=== PATIENT | female | born 1970 | race Caucasian/White ===

== ENCOUNTER 2018-01-21 18:55 | Emergency (ER) | payer BC ==
[2018-01-21] MEDS ORDERED: Ketorolac INJ* 30 MG/ML 1 ML VIAL IV PUSH ONE (19:31)
[2018-01-21] MEDS ORDERED: Dexamethasone IV* 4 MG/ML 1 ML (4 MG) IV SLOW PU ONE (19:32)
--- NOTE | 2018-01-21 19:59 | RAD ---
INDICATION: Right central low back pain. COMPARISON: There are no prior studies available for comparison. TECHNIQUE: 3 views of the lumbar spine were obtained including lateral, AP and a coned-down lateral view of the lumbar sacral junction. FINDINGS: There is a mild lumbar scoliosis convex toward the left side. No fracture is seen. There is mild degenerative disc disease at the dorsal lumbar junction and at the L3-L4 level. IMPRESSION: MILD DEGENERATIVE DISC DISEASE NOTED.
[2018-01-21 20:17] LABS: ABS Basophils 0.1 10^3/ul (0-0.2); ABS Eosinophils 0.3 10^3/ul (0-0.6); ABS Lymphocytes 1.3 10^3/ul (1.0-4.8); ABS Neutrophils 10.1 10^3/ul (1.5-7.7); ABS Nucleated RBC 0 10^3/ul; Eosinophil % 2.6 % (0-6); Hematocrit 31 % (35-47); Hemoglobin 10.4 g/dl (12.0-16.0); Lymphocyte % 9.9 % (25-47); Mean Corpuscular HGB Conc 34 g/dl (31-36); Mean Corpuscular Hemoglobin 31 pg (27-31); Mean Corpuscular Volume 90 fL (80-97); Mean Platelet Volume 8.1 um3 (7.4-10.4); Nucleated Red Blood Cells % 0; Platelet Count 200 10^3/ul (150-450); Red Cell Distribution Width 14 % (10.5-15); White Blood Count 12.9 10^3/ul (3.5-10.8)
--- NOTE | 2018-01-21 20:17 | ED ---
Back Pain - HPI Summary HPI Summary: The patient is a 47 y/o F presenting to [facility] accompanied by her c/o severe aching lower back pain in the middle area near the beginning of her pelvic bone with a sudden onset at 04:00 this morning. The pain abruptly woke up the pt from sleeping this morning, although she had felt alright last night. To attempt to relieve the pain, she did some yoga stretches to no relief. She then had been unable to ambulate easily without pain. The pain had also moved into her right inguinal region and upper thigh. The pain is aggravated by any movement, including bending, ambulating, and breathing. She took Tylenol and Advil for treatment of the pain to no relief. She additionally c/o nausea. She denies CP, SOB, tingling in lower extremities, urinary symptoms, and changes in BM. She notes that she had walked a lot last weekend, but has never experienced this pain before. She currently rates the pain 8/10 in severity. She has hx of renal failure, sarcoidosis, and hilarbilliary cirrhosis. She has not had sciatica or arthritis before. She is allergic to codeine and tramadol. - History of Current Complaint Chief Complaint: EDBackInjMich Stated Complaint: BACK PAIN Time Seen by Provider: 01/21/18 19:19 Hx Obtained From: Patient Onset/Duration: Sudden Onset, Lasting Hours - starting at 04:00 this morning, Still Present Onset/Duration: Started Hours Ago, Still Present - and worsening throughout the day Timing: Constant, Lasting Hours Back Pain Location: Is Discrete @ - middle of lower back at beginning of pelvic bone Severity Initially: Moderate Severity Currently: Moderate Pain Intensity: 8 Pain Scale Used: 0-10 Numeric Character: Aching Aggravating Symptom(s): Movement, Bending, Walking, Other - breathing Alleviating Symptom(s): Nothing Associated Signs And Symptoms: Positive: Negative - CP, SOB, urinary symptoms, change in BM, Pain with Weight Bearing, Other - pain in right inguinal region and upper thigh, nausea. Negative: Numbness - in lower extremities, Abdominal Pain Full Body (No Head): 1 - pain in middle of lower back near beginning of pelvic bone - Allergies/Home Medications Allergies/Adverse Reactions: Allergies Allergy/AdvReac Type Severity Reaction Status Date / Time codeine Allergy Hallucinati Verified 01/21/18 19:00 ons tramadol Allergy Altered Verified 01/21/18 19:00 Mental Status PMH/Surg Hx/FS Hx/Imm Hx Endocrine/Hematology History: Denies: Hx Diabetes Cardiovascular History: Denies: Hx Hypertension Respiratory History: Reports: Other Respiratory Problems/Disorders - sarcoidosis GI History: Reports: Hx Cirrhosis - hilarbilliary cirrhosis Musculoskeletal History: Denies: Hx Arthritis, Hx Back Problems Sensory History: Denies: Hx Deafness Opthamlomology History: Denies: Hx Legally Blind EENT History: Denies: Hx Deafness - Cancer History Hx Chemotherapy: No Hx Radiation Therapy: No Infectious Disease History: Yes Infectious Disease History: Denies: Traveled Outside the [place] in Last 30 Days - Family History Known Family History: Negative: Cardiac Disease, Diabetes - Social History Alcohol Use: Rare Substance Use Type: Reports: None Smoking Status (MU): Never Smoked Tobacco Review of Systems Negative: Chest Pain Negative: Shortness Of Breath Gastrointestinal: Negative - abnormal BM Positive: Nausea Positive: no symptoms reported Positive: Other - pain the middle of the lower back at beginning of pelvic bone , pain in right region and upper thigh, pain with weight bearing Negative: Numbness - in lower extremities All Other Systems Reviewed And Are Negative: Yes Physical Exam - Summary Physical Exam Summary: Appearance: Well-appearing, Well-nourished, lying in bed comfortably Skin: Warm, dry, no obvious rash Eyes: sclera anicteric, no conjunctival pallor ENT: mucous membranes moist, pharynx appears normal Neck: Supple, nontender Respiratory: Clear to auscultation, no signs of respiratory distress Cardiovascular: Normal S1, S2. No murmurs. Normal distal pulses in tibial and radial bilaterally. Abdomen: Soft, nontender, normal active bowel sounds present Musculoskeletal: Strength/ROM Intact, Focal pain over SI joint, normal deep tendon reflexes in the knees and ankles bilaterally, Babinski's absent Neurological: A&Ox3, awake and alert, mentation is normal, speech is fluent and appropriate Psychiatric: affect is normal, does not appear anxious or depressed Triage Information Reviewed: Yes Vital Signs On Initial Exam: Initial Vitals Temp Pulse Resp BP Pulse Ox 97.8 F 71 18 149/73 99 01/21/18 18:57 01/21/18 18:57 01/21/18 18:57 01/21/18 18:57 01/21/18 18:57 Vital Signs Reviewed: Yes Diagnostics - Vital Signs Vital Signs Temp Pulse Resp BP Pulse Ox 01/21/18 18:57 97.8 F 71 18 149/73 99 - Laboratory Result Diagrams: 01/21/18 20:06 01/21/18 20:06 Lab Statement: Any lab studies that have been ordered have been reviewed, and results considered in the medical decision making process. - Radiology Lumbar Spine XR Xray Interpretation: Positive (See Comments) - Mild degenerative disc disease as noted. ED physician has reviewed this report. Radiology Interpretation Completed By: Radiologist Lumbar Spine MRI Xray Interpretation: Positive (See Comments) - Mild multilevel lumbar spondylopathy without canal stenosis or nerve root compression. ED physician has reviewed this report. Radiology Interpretation Completed By: Radiologist Back Pain Course/Dx - Course Course Of Treatment: This is a 47-year-old woman with abrupt onset of quite severe pain in the lower back slightly to the right of the midline. She did not have any fever, but given the severity and acuity of pain as well as her relative immunosuppression with her liver and kidney disease, I was concerned about the possibility of spinal infection. Fortunately her MRI scan (done without gadolinium contrast due to the patient's fairly advanced renal insufficiency) does not show any evidence of that. Also of interest is her urinalysis which is suggestive of infection. Her pain is not an atypical location for her pyelonephritis however, and she does not have any urinary symptoms or other suggestion of kidney infection. Nevertheless, given the diagnostic uncertainty here, it would be reasonable to prescribe a course of antibiotics, at least pending culture results. - Diagnoses Provider Diagnoses: Back pain, Pyelonephritis - Provider Notifications Discussed Care Of Patient With: César Quinones Time Discussed With Above Provider: 20:45 Instructed by Provider To: Other - authorized lumbar MRI Discharge - Sign-Out/Discharge Documenting (check all that apply): Patient Departure - Pt will be discharged home. - Discharge Plan Condition: Good Disposition: HOME Prescriptions: Oxycodone TAB(NF) [Oxycodone HCl 10 MG] 10 mg PO Q6H PRN #12 tab MDD 4 tabs PRN Reason: Pain Sulfamethox/Trimethoprim SS* [Bactrim SS 400/80 TAB*] 1 tab PO BID #20 tab Patient Education Materials: Kidney Infection (ED), Low Back Strain (ED) Referrals: Ange Resendiz MD [Primary Care Provider] - - Billing Disposition and Condition Condition: GOOD Disposition: Home Attestations Scribe Attestation: This is eduardoibe Teresa Shetty documenting for attending Dr. Donald Juan MD. User Type: Provider with Scribe Provider Attestation: The documentation recorded by the scribe accurately reflects the service I personally performed and the decisions made by me.
[2018-01-21 20:39] LABS: EGFR Non-African American 8.6 (>60)
[2018-01-21] MEDS ORDERED: Diazepam TAB(*) 5 MG PO ONE (20:56)
[2018-01-21] MEDS ORDERED: Morphine VIAL* 4 MG/ML VIAL (1 ml vial) IV ONE (21:21)
[2018-01-21] MEDS ORDERED: Morphine INJ* 2 MG/ML 1 ML SYRINGE (TWO MG - NEW SYRINGE VERSION) ONE (21:39)
[2018-01-21] MEDS ORDERED: Lidocaine PATCH 5%* 1 PATCH TRANSDERM ONE (22:00)
[2018-01-21 23:06] LABS: Urine Appearance Clear; Urine Blood 1+ (Negative); Urine Color Straw; Urine Ketones Negative (Negative); Urine Protein 3+(>=500 mg/dL) (Negative); Urine Red Blood Cell Trace(0-2/hpf) (Absent); Urine Urobilinogen Negative (Negative); Urine White Blood Cell 3+(>20/hpf) (Absent)
[2018-01-22] MEDS ORDERED: Nitrofurantoin Macrocrystals* 100 MG CAP PO ONE (02:30)
[2018-01-22] MEDS ORDERED: Sulfamethox/Trimethoprim SS 400/80* TAB PO ONE (02:41)
[2018-01-22] MEDS ORDERED: Sulfamethox/Trimethoprim DS 800/160* TAB ONE (02:52)
[2018-01-22 03:21] VITALS: BP 136/89
--- NOTE | 2018-01-22 07:21 | RAD ---
INDICATION: Low back pain assess for spinal infection. COMPARISON: Comparison is made with a prior x-ray study of the lumbar spine from January 21, 2018. TECHNIQUE: Axial and sagittal T1 and T2 and coronal T2-weighted images of the lumbar spine were obtained. FINDINGS: The vertebra are in normal alignment and normal in signal intensity without focal abnormality. Specifically no bone marrow edema or erosive endplate changes are seen. The intervertebral discs are are intermediate to low in signal intensity. There is no evidence for discitis or osteomyelitis. At the L1-L2 level there is no evidence for disc bulge or herniation. No spinal canal or neural foraminal narrowing is seen. At the L2-L3 level there is no evidence for disc bulge or herniation. No spinal canal or neural foraminal narrowing is seen. There are mild hypertrophic changes within the facet joints. At the L3-L4 level there is no evidence for disc bulge or herniation. There are mild hypertrophic changes within the facet joints. No spinal canal or neural foraminal narrowing is seen. At the L4-L5 level there is a minimal broad-based disc bulge and mild to moderate hypertrophic changes within the facet joints. No spinal canal or neural foraminal narrowing is seen. At the L5-S1 level there is no evidence for disc bulge or herniation. There are moderate hypertrophic changes within the facet joints. No significant spinal canal and neural foraminal narrowing is seen. IMPRESSION: 1. NO EVIDENCE FOR DISCITIS OR OSTEOMYELITIS. 2. MILD LUMBAR SPONDYLOSIS.
[2018-01-22] MEDS ORDERED: Lidocaine Patch REMOVE* 1 NOTE MISC PATCH OFF ONE (10:00)
== END 2018-01-22 03:20 | disposition home or self-care (01) ==
LOC: ED 18:55
DX: N10 Acute pyelonephritis (principal); M54.5 Low back pain; M47.816 Spondylosis without myelopathy or radiculopathy, lumbar region; M51.36 Other intervertebral disc degeneration, lumbar region; R11.0 Nausea; Z88.5 Allergy status to narcotic agent
CPT/HCPCS: 36415; 72100; 72148; 80053; 81003; 81015; 85025; 85652; 86140; 87086; 96374; 96375; 99283; A9270-GY; J1100; J1885; J2270

== ENCOUNTER 2018-01-23 09:39 | Emergency (ER) | payer BC ==
[2018-01-23] MEDS ORDERED: NS 0.9% 1000 ML*IV.FLUID IV ONE (09:56)
[2018-01-23] MEDS ORDERED: Piperacillin/Tazobac ADVAN(*) 3.375 GM in NS 0.9% 100 ML* 100 ML IVPB ONE ×2 (09:56→15:30)
[2018-01-23 10:29] LABS: ABS Basophils 0.1 10^3/ul (0-0.2); ABS Eosinophils 0 10^3/ul (0-0.6); ABS Lymphocytes 0.4 10^3/ul (1.0-4.8); ABS Monocytes 1.5 10^3/ul (0-0.8); ABS Neutrophils 15.2 10^3/ul (1.5-7.7); ABS Nucleated RBC 0 10^3/ul; Eosinophil % 0 % (0-6); Hematocrit 31 % (35-47); Hemoglobin 10.6 g/dl (12.0-16.0); Lymphocyte % 2.5 % (25-47); Mean Corpuscular HGB Conc 34 g/dl (31-36); Mean Corpuscular Hemoglobin 31 pg (27-31); Mean Corpuscular Volume 92 fL (80-97); Mean Platelet Volume 7.7 um3 (7.4-10.4); Nucleated Red Blood Cells % 0; Platelet Count 155 10^3/ul (150-450); Red Blood Count 3.41 10^6/ul (4.00-5.40); Red Cell Distribution Width 14 % (10.5-15); White Blood Count 17.1 10^3/ul (3.5-10.8)
[2018-01-23 10:45] LABS: EGFR Non-African American 7.8 (>60)
--- NOTE | 2018-01-23 10:50 | RAD ---
INDICATION: Sepsis and back pain. COMPARISON: Comparison is made with a prior chest x-ray study from January 30, 2012. TECHNIQUE: A portable view of the chest was obtained. FINDINGS: The heart is within normal limits in size. The lungs are underinflated. There are small bibasilar infiltrates. No pleural effusion is seen. IMPRESSION: LOW LUNG VOLUMES, SMALL BIBASILAR INFILTRATES.
[2018-01-23 11:45] LABS: INR 1.1 (0.77-1.02)
[2018-01-23] MEDS ORDERED: Acetaminophen TAB* 325 MG PO ONE (12:00)
[2018-01-23 13:50] LABS: Urine Appearance Cloudy; Urine Blood 2+ (Negative); Urine Color Yellow; Urine Ketones Negative (Negative); Urine Protein 2+(100 mg/dL) (Negative); Urine Red Blood Cell Trace(0-2/hpf) (Absent); Urine Specific Gravity 1.009 (1.010-1.030); Urine Urobilinogen Negative (Negative); Urine White Blood Cell 2+(11-20/hpf) (Absent)
--- NOTE | 2018-01-23 14:06 | ED ---
GI/ HPI - HPI Summary HPI Summary: This is scrcedrick Paige documenting for attending Milli Luna M.D. Patient is a 47 y/o F BIBA w/ c/o back pain, right flank pain and fever. EMS states patient has Hx of sarcoidosis, liver failure, kidney failure. Patient is not on dialysis and has no fistula. She is an established pt of Dr. Aj. On triage, it is noted that patient had fever and back pain two days ago. Patient was treated for possible UTI and was started on Bactrim and oxycodone two days ago,with no relief. In the ED on 01/21/18, pt had MRI spine that showed only mild lumbar spondylosis, no discitis or osteomyelitis. Pt had no fever during that ED visit. Urine culture from 01/21/18 showed no growth. In the room, EMS reports fever was 104.8 F at home, and patient had poor fluid intake. Patient was at home with and family, who called EMS. Family told EMS patient could not get out of bed. EMS found patient writhing and crying due to pain, was given fentanyl 100 micrograms and 4 mg of Zofran at 0922. On triage, pain is rated 1/10 and nothing is noted to aggravate/alleviate Sx. Initial vitals were 101 F, pulse 89, BP 140/64, O2 sat was 91 and pt was placed on 2 L NC with improvement in her O2 sat. Home medications reported are as follows: Furosemide TAB* [Lasix TAB*] 80 mg PO BID 01/23/18 [History Confirmed 01/23/18] Labetalol TAB* [Trandate TAB*] 300 mg PO BID 01/23/18 [History Confirmed ] Simvastatin (NF) [Zocor (NF)] 40 mg PO BEDTIME 01/23/18 [History Confirmed 01/23] Sodium Citrate/Citric Acid* [Bicitra*] 10 ml PO TID 01/23/18 [History Confirmed 01/23/18] Ursodiol 500 mg PO QPM 01/23/18 [History Confirmed 01/23/18] Ursodiol 750 mg PO QAM 01/23/18 [History Confirmed 01/23/18] Bactrim SS bid since 01/21/18 Reported allergies are as follows: Allergy/AdvReac Type Severity Reaction Status Date / Time codeine Allergy Hallucinati Verified 01/23/18 09:59 ons tramadol Allergy Altered Verified 01/23/18 09:59 Mental Status I, Dr. Luna, personally performed the services described in this documentation as scribed in my presence and it is both accurate and complete. - History of Current Complaint Chief Complaint: EDFever Time Seen by Provider: 01/23/18 09:50 Stated Complaint: BACK PAIN Hx Obtained From: Patient, EMS, Medical Records Onset/Duration: Started Hours Ago - this morning family called EMS, Started Days Ago - seen for back pain two days ago Timing: Lasting Days - patient was seen for back pain 2 days ago Severity: Severe Current Severity: Mild - on triage, pain is rated 1/10, after fentanyl administered by EMS Pain Intensity: 1 Location of Pain: Flank - right, Other - right low back Pain Characteristics: Sharp Associated Signs and Symptoms: Positive: Back Pain, Fever, Other: - right flank pain, poor po intake Aggravating Factor(s): Nothing Alleviating Factor(s): Nothing - Allergy/Home Medications Allergies/Adverse Reactions: Allergies Allergy/AdvReac Type Severity Reaction Status Date / Time codeine Allergy Hallucinati Verified 01/23/18 09:59 ons tramadol Allergy Altered Verified 01/23/18 09:59 Mental Status Home Medications: Home Medications Furosemide TAB* [Lasix TAB*] 80 mg PO BID 01/23/18 [History Confirmed 01/23/18] Labetalol TAB* [Trandate TAB*] 300 mg PO BID 01/23/18 [History Confirmed ] Simvastatin (NF) [Zocor (NF)] 40 mg PO BEDTIME 01/23/18 [History Confirmed 01/23] Sodium Citrate/Citric Acid* [Bicitra*] 10 ml PO TID 01/23/18 [History Confirmed 01/23/18] Ursodiol 500 mg PO QPM 01/23/18 [History Confirmed 01/23/18] Ursodiol 750 mg PO QAM 01/23/18 [History Confirmed 01/23/18] PMH/Surg Hx/FS Hx/Imm Hx Previously Healthy: No Endocrine/Hematology History: Denies: Hx Diabetes Cardiovascular History: Denies: Hx Hypertension, Hx Pacemaker/ICD Respiratory History: Reports: Other Respiratory Problems/Disorders - sarcoidosis GI History: Reports: Hx Cirrhosis - primary biliary cirrhosis History: Reports: Hx Chronic Renal Failure - stage IV, Hx Renal Disease - nephrotic syndrome, glomerulonephritis Musculoskeletal History: Denies: Hx Arthritis, Hx Back Problems Sensory History: Denies: Hx Legally Blind, Hx Deafness, Hx Hearing Aid Opthamlomology History: Denies: Hx Legally Blind Psychiatric History: Denies: Hx Panic Disorder - Cancer History Hx Chemotherapy: No Hx Radiation Therapy: No - Surgical History Surgery Procedure, Year, and Place: tubal ligation, hysterectomy 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 Infectious Disease History: Denies: Traveled Outside the [place] in Last 30 Days - Family History Known Family History: Negative: Cardiac Disease, Diabetes - Social History Lives: With Family Alcohol Use: None Substance Use Type: Reports: None Smoking Status (MU): Former Smoker Review of Systems Positive: Fever, Other - inability to keep up with fluids Cardiovascular: Negative Respiratory: Negative Gastrointestinal: Negative Positive: flank pain - right sided Positive: Other - back pain, right Skin: Negative Neurological: Negative Psychological: Normal All Other Systems Reviewed And Are Negative: Yes Physical Exam - Summary Physical Exam Summary: Appearance: ill appearing, moderate pain distress, obese, febrile Skin: Warm, color reflects adequate perfusion, dry Head: Normal Head/Face inspection, atraumatic Eyes: Conjunctiva clear ENT: dry oral mucosa Neck: Supple, no nodes, no JVD Respiratory: shallow respirations, decreased breath sounds throughout, no respiratory distress Cardio: RRR, No murmur, pulses normal, brisk capillary refill Abdomen: Soft, nontender Bowel sounds: Present Musculoskeletal: Strength Intact/ROM intact, no calf tenderness, no edema. Psychological: c/o pain, cooperative Neuro: Alert, facial symmetry, moves all extremities well, sensation intact to light touch, no focal deficit. Triage Information Reviewed: Yes Vital Signs On Initial Exam: Initial Vitals Temp Pulse Resp BP Pulse Ox 101 F 89 23 140/64 91 01/23/18 09:52 01/23/18 09:52 01/23/18 09:52 01/23/18 09:52 01/23/18 09:52 Vital Signs Reviewed: Yes Diagnostics - Vital Signs Vital Signs Temp Pulse Resp BP Pulse Ox 01/23/18 13:44 90 22 145/68 97 01/23/18 13:14 94 28 164/70 95 01/23/18 13:00 87 23 93 01/23/18 12:44 89 20 152/69 01/23/18 12:14 95 23 153/68 98 01/23/18 12:00 87 23 97 01/23/18 11:56 101.7 F 01/23/18 11:44 87 24 148/71 98 01/23/18 11:21 88 23 151/68 95 01/23/18 11:14 87 24 147/68 97 01/23/18 11:00 89 23 99 01/23/18 10:44 89 21 148/69 98 01/23/18 10:14 89 24 142/75 98 01/23/18 10:02 97 01/23/18 10:00 88 24 95 01/23/18 09:53 88 26 140/64 83 01/23/18 09:52 101 F 89 23 140/64 91 - Laboratory Lab Results: Lab Results 01/23/18 01/23/18 01/23/18 Range/Units 10:15 10:15 10:15 WBC 17.1 H (3.5-10.8) 10^3/ul RBC 3.41 L (4.00-5.40) 10^6/ul Hgb 10.6 L (12.0-16.0) g/dl Hct 31 L (35-47) % MCV 92 (80-97) fL MCH 31 (27-31) pg MCHC 34 (31-36) g/dl RDW 14 (10.5-15) % Plt Count 155 (150-450) 10^3/ul MPV 7.7 (7.4-10.4) um3 Neut % (Auto) 88.5 H (38-83) % Lymph % (Auto) 2.5 L (25-47) % Clinton % (Auto) 8.7 H (0-7) % Eos % (Auto) 0 (0-6) % Baso % (Auto) 0.3 (0-2) % Absolute Neuts (auto) 15.2 H (1.5-7.7) 10^3/ul Absolute Lymphs (auto) 0.4 L (1.0-4.8) 10^3/ul Absolute Monos (auto) 1.5 H (0-0.8) 10^3/ul Absolute Eos (auto) 0 (0-0.6) 10^3/ul Absolute Basos (auto) 0.1 (0-0.2) 10^3/ul Absolute Nucleated RBC 0 10^3/ul Nucleated RBC % 0 ESR 102 H (0-14) mm/Hr INR (Anticoag Therapy) 1.10 H (0.77-1.02) APTT 32.3 (26.0-36.3) seconds Fibrinogen 782.2 H (110.8-404.3) mg/dL ABG pH (7.35-7.45) ABG pCO2 (35-45) mmHg ABG pO2 (80-100) mmHg ABG HCO3 (19-31) mmol/L ABG O2 Saturation (95-98) % ABG Base Excess (-2.0-2.0) Sodium 130 L (135-145) mmol/L Potassium 4.9 (3.5-5.0) mmol/L Chloride 102 (101-111) mmol/L Carbon Dioxide 16 L (22-32) mmol/L Anion Gap 12 H (2-11) mmol/L BUN 89 H (6-24) mg/dL Creatinine 5.78 H (0.51-0.95) mg/dL Est GFR ( Amer) 9.4 (>60) Est GFR (Non-Af Amer) 7.8 (>60) BUN/Creatinine Ratio 15.4 (8-20) Glucose 136 H (70-100) mg/dL Lactic Acid (0.5-2.0) mmol/L Calcium 9.0 (8.6-10.3) mg/dL Total Bilirubin 0.50 (0.2-1.0) mg/dL AST 16 (13-39) U/L ALT 15 (7-52) U/L Alkaline Phosphatase 168 H (34-104) U/L Total Creatine Kinase 129 (10-223) U/L Troponin I 0.02 (<0.04) ng/mL C-Reactive Protein 154.19 H (<8.01) mg/L B-Natriuretic Peptide ( - 100) pg/mL Total Protein 7.2 (6.4-8.9) g/dL Albumin 3.8 (3.2-5.2) g/dL Globulin 3.4 (2-4) g/dL Albumin/Globulin Ratio 1.1 (1-3) Procalcitonin (<0.6) ng/mL Urine Color Urine Appearance Urine pH (5-9) Ur Specific [place] (1.010-1.030) Urine Protein (Negative) Urine Ketones (Negative) Urine Blood (Negative) Urine Nitrate (Negative) Urine Bilirubin (Negative) Urine Urobilinogen (Negative) Ur Leukocyte Esterase (Negative) Urine WBC (Auto) (Absent) Urine RBC (Auto) (Absent) Ur Squamous Epith Cells (Absent) Urine Bacteria (Absent) Urine Glucose (Negative) 01/23/18 01/23/18 01/23/18 Range/Units 10:15 10:15 10:15 WBC (3.5-10.8) 10^3/ul RBC (4.00-5.40) 10^6/ul Hgb (12.0-16.0) g/dl Hct (35-47) % MCV (80-97) fL MCH (27-31) pg MCHC (31-36) g/dl RDW (10.5-15) % Plt Count (150-450) 10^3/ul MPV (7.4-10.4) um3 Neut % (Auto) (38-83) % Lymph % (Auto) (25-47) % Clinton % (Auto) (0-7) % Eos % (Auto) (0-6) % Baso % (Auto) (0-2) % Absolute Neuts (auto) (1.5-7.7) 10^3/ul Absolute Lymphs (auto) (1.0-4.8) 10^3/ul Absolute Monos (auto) (0-0.8) 10^3/ul Absolute Eos (auto) (0-0.6) 10^3/ul Absolute Basos (auto) (0-0.2) 10^3/ul Absolute Nucleated RBC 10^3/ul Nucleated RBC % ESR (0-14) mm/Hr INR (Anticoag Therapy) (0.77-1.02) APTT (26.0-36.3) seconds Fibrinogen (110.8-404.3) mg/dL ABG pH (7.35-7.45) ABG pCO2 (35-45) mmHg ABG pO2 (80-100) mmHg ABG HCO3 (19-31) mmol/L ABG O2 Saturation (95-98) % ABG Base Excess (-2.0-2.0) Sodium (135-145) mmol/L Potassium (3.5-5.0) mmol/L Chloride (101-111) mmol/L Carbon Dioxide (22-32) mmol/L Anion Gap (2-11) mmol/L BUN (6-24) mg/dL Creatinine (0.51-0.95) mg/dL Est GFR ( Amer) (>60) Est GFR (Non-Af Amer) (>60) BUN/Creatinine Ratio (8-20) Glucose (70-100) mg/dL Lactic Acid 0.6 (0.5-2.0) mmol/L Calcium (8.6-10.3) mg/dL Total Bilirubin (0.2-1.0) mg/dL AST (13-39) U/L ALT (7-52) U/L Alkaline Phosphatase (34-104) U/L Total Creatine Kinase (10-223) U/L Troponin I (<0.04) ng/mL C-Reactive Protein (<8.01) mg/L B-Natriuretic Peptide 500 H ( - 100) pg/mL Total Protein (6.4-8.9) g/dL Albumin (3.2-5.2) g/dL Globulin (2-4) g/dL Albumin/Globulin Ratio (1-3) Procalcitonin 2.1 H (<0.6) ng/mL Urine Color Urine Appearance Urine pH (5-9) Ur Specific [place] (1.010-1.030) Urine Protein (Negative) Urine Ketones (Negative) Urine Blood (Negative) Urine Nitrate (Negative) Urine Bilirubin (Negative) Urine Urobilinogen (Negative) Ur Leukocyte Esterase (Negative) Urine WBC (Auto) (Absent) Urine RBC (Auto) (Absent) Ur Squamous Epith Cells (Absent) Urine Bacteria (Absent) Urine Glucose (Negative) 01/23/18 01/23/18 Range/Units 11:10 13:20 WBC (3.5-10.8) 10^3/ul RBC (4.00-5.40) 10^6/ul Hgb (12.0-16.0) g/dl Hct (35-47) % MCV (80-97) fL MCH (27-31) pg MCHC (31-36) g/dl RDW (10.5-15) % Plt Count (150-450) 10^3/ul MPV (7.4-10.4) um3 Neut % (Auto) (38-83) % Lymph % (Auto) (25-47) % Clinton % (Auto) (0-7) % Eos % (Auto) (0-6) % Baso % (Auto) (0-2) % Absolute Neuts (auto) (1.5-7.7) 10^3/ul Absolute Lymphs (auto) (1.0-4.8) 10^3/ul Absolute Monos (auto) (0-0.8) 10^3/ul Absolute Eos (auto) (0-0.6) 10^3/ul Absolute Basos (auto) (0-0.2) 10^3/ul Absolute Nucleated RBC 10^3/ul Nucleated RBC % ESR (0-14) mm/Hr INR (Anticoag Therapy) (0.77-1.02) APTT (26.0-36.3) seconds Fibrinogen (110.8-404.3) mg/dL ABG pH 7.23 L (7.35-7.45) ABG pCO2 31 L (35-45) mmHg ABG pO2 82 (80-100) mmHg ABG HCO3 14.5 L (19-31) mmol/L ABG O2 Saturation 98.7 H (95-98) % ABG Base Excess -13.4 L (-2.0-2.0) Sodium (135-145) mmol/L Potassium (3.5-5.0) mmol/L Chloride (101-111) mmol/L Carbon Dioxide (22-32) mmol/L Anion Gap (2-11) mmol/L BUN (6-24) mg/dL Creatinine (0.51-0.95) mg/dL Est GFR ( Amer) (>60) Est GFR (Non-Af Amer) (>60) BUN/Creatinine Ratio (8-20) Glucose (70-100) mg/dL Lactic Acid (0.5-2.0) mmol/L Calcium (8.6-10.3) mg/dL Total Bilirubin (0.2-1.0) mg/dL AST (13-39) U/L ALT (7-52) U/L Alkaline Phosphatase (34-104) U/L Total Creatine Kinase (10-223) U/L Troponin I (<0.04) ng/mL C-Reactive Protein (<8.01) mg/L B-Natriuretic Peptide ( - 100) pg/mL Total Protein (6.4-8.9) g/dL Albumin (3.2-5.2) g/dL Globulin (2-4) g/dL Albumin/Globulin Ratio (1-3) Procalcitonin (<0.6) ng/mL Urine Color Yellow Urine Appearance Cloudy Urine pH 5.0 (5-9) Ur Specific [place] 1.009 L (1.010-1.030) Urine Protein 2+(100 mg/dl) A (Negative) Urine Ketones Negative (Negative) Urine Blood 2+ A (Negative) Urine Nitrate Negative (Negative) Urine Bilirubin Negative (Negative) Urine Urobilinogen Negative (Negative) Ur Leukocyte Esterase Trace A (Negative) Urine WBC (Auto) 2+(11-20/hpf) A (Absent) Urine RBC (Auto) Trace(0-2/hpf) (Absent) Ur Squamous Epith Cells Present A (Absent) Urine Bacteria Absent (Absent) Urine Glucose 1+(50 mg/dl) A (Negative) Result Diagrams: 01/23/18 10:15 01/23/18 10:15 Lab Statement: Any lab studies that have been ordered have been reviewed, and results considered in the medical decision making process. - Radiology CXR Xray Interpretation: Positive (See Comments) Radiology Interpretation Completed By: Radiologist - Low lung volumes, small bibasilar infiltrates. This report was reviewed by ED physician. - EKG 1005 Cardiac Rate: NL - Rate of 90 BPM. EKG Rhythm: Sinus Rhythm Ectopy: None EKG Interpretation: nl AVIVCT, nl QTc, axis (-46), LAFB, no acute changes EKG Comparison: No Significant Change - compared with EKG from 01/30/2012 1104 Cardiac Rate: NL EKG Rhythm: Sinus Rhythm ST Segment: Non-Specific - non-specific ST-T wave changes Ectopy: None EKG Interpretation: nl AVIVCT, QTCs decreased to 505, no acute changes. Re-Evaluation - Re-Evaluation First Eval Re-Evaluation Time: 14:11 Change: Unchanged Comment: Reassesment after fluid bolus. Cap refill intact and less than 2 secs. Skin warm dry, indicates adequate perfusion. Heart S1 S2, lungs decreased BS throughout. Mental status alert, c/o pain. Discussed Dr. Aj's opinion on need for transfer of patient, who recommends she be sent to [facility] as Dr. Martinez, director of architecture and Dr. Gtz, ID, have cared for pt in the past. Vitals in the room are heart rate of 90, 145/68 BP, 97 O2. Back pain and lower abdominal pain are still present. Patient and are agreeable to transfer. Second Eval Re-Evaluation Time: 17:04 Change: Unchanged Comment: Patient's states he has talked with his insurance and they are agreeable with transfer to [facility] Course/Dx - Course Assessment/Plan: Patient is a 47 y/o F BIBA w/ c/o back pain, right flank pain and fever. Pt with hx sarcoidosis, primary biliary cirrhosis, glomerulonephritis and nephrotic syndrome. On 01/21/18, patient was treated for possible UTI and was started on Bactrim empirically, and oxycodone for pain after ED visit. MRI on 01/21/18 showed no discitis or osteomyelits. Urine culture 01/21/18 showed no growth. Pt was afebrile on 01/21/18. In the room, EMS reports fever was 104.8 F at home. Family told EMS patient could not get out of bed. EMS found patient writhing and crying due to pain, was given fentanyl 100 micrograms and 4 mg of Zofran at 0922. Initial vitals were 101 F, pulse 89, BP 140/64, O2 sat was 91. CXR showed low lung volumes, small bibasilar infiltrates. EKG was sinus rate and rhythm, rate at 90 BPM. EKG also showed nl AVIVCT, nl QTc, axis (-46), LAFB, no acute changes. Comparison to EKG taken 01/30/2012 showed no acute changes. During ED course, patient was started on sepsis protocol, given fluids, piperacllin sod/tazobactam sod 3.375 gm in fluids 100 mls @ 200 mls/hr IVPD ED ONCE at 0956, Tylenol 650 mg PO ONCE, IV dilaudid 1mg, morphine 4mg IV. Labs showed WBC 17.1, RBC 3.41, Hgb 10.6, Hct 31, Fibrinogen 782.2 H, ABG pH 7.23, ABG pCO2 31, ABG HCO3 14.5, ABG O2 sat 97.7 , ABG Base Excess -13.4, sodium 130, CO2 15, anion gap 12, 89 BUN, creatinine 5.78, CRP 154.19, procalcitonin 2.1, urine gravity, 1.0009, urine protein 2+( 100 mg/dl), urine blood was 2+, Urine leukocyte Esterase was trace, urine WBC was 2+(11-20/hpf), urine squamous epith cells were present, urine glucose was 1+ (50 mg/dl). At 13:02, Dr. Nieves was consulted on the patient's case. Dr. Nieves accepts patient for admission to [facility]. She was diagnosed with PNA, right flank pain, sepsis, and chronic kidney disease stage 4. 13:57 -- Dr. Nieves states she consulted Dr. Aj on patient's case, who recommends transfer to higher level facility due to symptoms and past medical history which includes fungal meningitis, and no nephrology or infectious disease available at [facility] today. (Dr. Aj on medical leave presently, spoke with Dr. Nieves by phone. 14:06 -- Bonny from [facility] transfer center was called to initiate transfer. At 14: 11, need for transfer was discussed. Patient was still experiencing back pain and right flank pain. They are agreeable with transfer, and understand [facility] is not the closest hospital 14:13 -- Gema at [facility] transfer center, believes can confirm acceptance for necessary services. [facility] is on critical bed status, only bed that is available is at [facility] in [place], which is affiliated with [facility]. 14:25 -- Consult with Dr. Nieves, states Dr. Aj would be fine with [facility] assuming it is affiliated with [facility]. 14:30 -- Called [facility] through transfer center, spoke with Gema who said she would call back as she was dealing with critical transfer currently. 15:01 -- Dr. Casey, Gema and Bonny were on phone for transfer, call was dropped from Dr. Casey. 15:23 -- Dr. Casey called back, accepts patient for admission to [facility], advises a second dose of zosyn 3.375 IV. - Diagnoses Provider Diagnoses: PNA (pneumonia), Sepsis, Right flank pain, Chronic kidney disease, stage 4 ( severe) - Physician Notifications Discussed Care Of Patient With: Arlene Nieves Time Discussed With Above Provider: 13:02 Instructed by Provider To: Other - 13:02 -- Dr. Nieves was consulted on the patient's case. Dr. Nieves accepts patient for admission to [facility]. 13:57 -- Dr. Nieves states she consulted Dr. Aj on patient's case, who recommends transfer to higher level facility due to symptoms and past medical history which includes bacterial meningitis and no nephrology or infectious disease available at [facility]. 14:06 -- Bonny from [facility] transfer center was called to initiate transfer. 14:13 -- Gema at [facility] transfer center, believes can confirm acceptance for necessary services. [facility] is at critical bed status, only bed that is available is at [facility] in [place], which is affiliated with [facility]. 14:25 -- Consult with Dr. Nieves, states Dr. Aj would be fine with [facility] assuming it is affiliated with [facility]. 14:30 -- Called [facility] transfer center, spoke with Gema who said she would call back as she was dealing with critical transfer currently. 15:01 -- Dr. Casey, Gema and Bonny were on phone for transfer, call was dropped from Dr. Casey. 15:23 -- Dr. Casey called back, accepts patient for admission to [facility]. Reason For Transfer: Specialty or service not available at [facility]. - today, no nephrology or infectious disease Discharge - Sign-Out/Discharge Documenting (check all that apply): Patient Departure - transfer - Discharge Plan Condition: Fair Disposition: TRANS HIGHER LVL OF CARE FAC Referrals: Ange Resendiz MD [Primary Care Provider] - - Billing Disposition and Condition Condition: FAIR Disposition: Trans Higher Lvl of Care Fac
[2018-01-23] MEDS ORDERED: NS 0.9% 1000 ML* 1,000 ML IV SCH (14:15)
[2018-01-23] MEDS ORDERED: Morphine INJ* 2 MG/ML 1 ML SYRINGE (TWO MG - NEW SYRINGE VERSION) IV ONE (16:22)
--- NOTE | 2018-01-23 16:40 | CONS ---
CC: Dr. Milli Luna; Dr. Ange Resendiz; Dr. Aj; Dr. Laura Gtz, Infectious Disease specialis t at [facility]; Dr. Beny Martinez, labor relations director at [facility] CONSULTATION REPORT: DATE OF CONSULT: 01/23/18 TIME OF EVALUATION: 1:30 p.m. REQUESTING PHYSICIAN: Dr. Milli Luna. PRIMARY CARE PROVIDER: Dr. Ange Resendiz. CORPORATE ACCOUNT EXECUTIVE: Dr. Aj. INFECTIOUS DISEASE SPECIALIST: Dr. Laura Gtz. OUTPATIENT CORPORATE ACCOUNT EXECUTIVE: Dr. Beny Martinez. CHIEF COMPLAINT: "Fever." HISTORY OF PRESENT ILLNESS: Ms. Jacques is a 47-year-old lady with a past medical history of obesit y, sarcoidosis, glomerulonephritis with nephrotic syndrome, primary biliary cirrhosis, hyperlipidemia , history of fungal meningitis when she was being treated with steroids, who presents to the emergenc y room with complaints of back pain and fever. The patient states that 3 days ago she developed right-sided low back pain radiating to her right leg , rated as 8/10. She was seen in the emergency room and the pain was described as being in the middl e area near the beginning of her pelvic bone with sudden onset at 4 a.m. that day. The patient did s ome stretches, but had no relief, took Tylenol, Advil with no improvement reason why she came to the emergency room. At that point, she did not have any fever, but given the severity and acuity of the pain as well as her relative immunosuppression with her liver and kidney disease, the emergency room provider was concerned about the possibility of spinal infection. The patient had an MRI of the spin e without contrast as her renal function precluded gadolinium use and that showed no evidence for dis kitis or osteomyelitis, only mild lumbar spondylosis. Her urinalysis was suggestive of infection wit h 1+ blood, 1+ LE, 3+ wbc's, 3+ protein. Although the ED provider felt that this was in the typical location for pyelonephritis, he felt that given the diagnostic uncertainty it would be reasonable to prescribe a course of antibiotics and she was discharged home on Bactrim. The patient states that sh e took the antibiotic, took oxycodone for pain, but it continued to be severe and she spent the whole weekend in bed as movement would make the pain worse. Of note is that the urine culture sent on 04/30 showed no growth. Last night, she had a fever spike of 104 associated with shaking chills and persistence of the back p ain reason why she returned to the emergency room today. Her workup in the emergency room today included a chest x-ray that showed low lung volumes and small bibasilar infiltrates and laboratory tests that showed leukocytosis with WBC of 17.1 with left shift. Her ESR increased from 66 from Tuesday to 102 today and her CRP increased from 9.4 on Tuesday to 154 today. Her procalcitonin was also positive at 2.1. The patient denies headache, nausea, vomiting, diarrhea, chest pain, shortness of breath, cough, palp itations, urinary complaints, or any other localizing symptoms. PAST MEDICAL HISTORY: 1. Sarcoidosis (diagnosed by abdominal lymph node biopsy in 2007). 2. Primary biliary cirrhosis (diagnosed in 2007 with positive antimitochondrial antibodies and liver biopsy with Dr. Fay). 3. Nephrotic syndrome, followed by Dr. Aj and Dr. Martinez. 4. Hyperlipidemia. 5. Hiatal hernia. 6. Reported history of fungal meningitis when the patient was being treated with steroids. PAST SURGICAL HISTORY: 1. Status post tubal ligation. 2. Status post hysterectomy. 3. Status post cholecystectomy. MEDICATION LIST: 1. Furosemide 80 mg p.o. b.i.d. 2. Labetalol 300 mg p.o. b.i.d. 3. Oxycodone 10 mg p.o. q.6 hours p.r.n. pain. 4. Simvastatin 40 mg p.o. at bedtime. 5. Bicitra 10 mL p.o. t.i.d. 6. Bactrim 1 tablet p.o. b.i.d. 7. Ursodiol 750 mg p.o. q.a.m. and 500 mg p.o. q.p.m. ALLERGIES: The patient had hallucinations with CODEINE and confusion with TRAMADOL. FAMILY HISTORY: Her mother is alive with diabetes and hypertension. Father in his 60s of a hea rt attack. A sister at age 47 with primary biliary cirrhosis. SOCIAL HISTORY: The patient has a prior history of tobacco abuse. No history of alcohol or drug use . Surrogate decision maker is her , Leonel Jacques, phone number is [phone]. REVIEW OF SYSTEMS: A 14-point review of systems performed and all the pertinent negative and positiv e findings are in the HPI. PHYSICAL EXAM: Vital Signs: Temperature 102, heart rate is 87, respiratory rate is 18, oxygen satur ation is 98% on 2 L, blood pressure is 136/65. General: The patient is an obese, middle-aged lady w ho appears older than stated age. HEENT: Pupils are equal. Very dry mucous membranes. CVS: Normal S1, S2. Regular rate and rhythm. Chest: Breath sounds present bilaterally with no added sounds. A bdomen is obese, soft, nontender, nondistended. Bowel sounds present. Extremities: No edema. Neuro : The patient is alert, awake, and oriented x3. She has severe pain when moved in bed and she was u nable to turn on her side so I could at her back due to severe pain despite having received fentanyl prior to my evaluation. DIAGNOSTIC STUDIES/LAB DATA: The patient had a CBC that showed WBC of 17.1, hemoglobin of 10.6, emmanuelle tocrit of 31, platelets of 155 with 88% neutrophils. ESR is 102. INR is 1.1, APTT is 32, fibrinogen is 782. ABG showed a pH of 7.23 with pCO2 of 31, PaO2 of 82, bicarb of 14, oxygen saturation 98%. Chemistry showed a sodium of 130, potassium of 4.9, chloride of 102, bicarb of 16, anion gap of 12, B UN of 89, creatinine of 5.7, glucose of 136, lactic acid was 0.6, calcium was 9. LFTs were normal exc ept for an alk phos of 168. CRP is 154. BNP is 500. Procalcitonin is 2.1. Chest x-ray showed low lung volumes with small bibasilar infiltrates. On her prior visit on 01/21/18, the patient had an MRI of the lumbar spine without contrast that show ed no evidence for diskitis or osteomyelitis, only mild lumbar spondylosis. ASSESSMENT AND PLAN: Ms. 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 The patient meets sepsis criteria with fever and leukocytosis, but source is unclear at this time. A lthough her urinalysis was abnormal 01/21/18, culture showed no growth. She did have worsening of he r leukocytosis, elevation of her ESR and CRP and her procalcitonin is also elevated. Although her vital signs are stable and her lactic acid is normal, the patient appears to be more ill than her numeric data suggests. She has no complaints of headache, nausea, or vomiting at this time. The only localizing symptom is this right low back pain radiating to her leg, but as described above her MRI failed to show an etiol ogy. A possibility is that this pain is associated with sciatica and is not related to this sepsis p resentation. One possibility would be that she is having a reaction to Bactrim, but this is unlikely as she has no eosinophils on her CBC. At this point, the impression is this patient has sepsis of unclear source. I discussed the case wit h her labor relations director of many years (Dr. Aj) and he thinks that considering the complexity of this p atient, the fact that she had meningitis in the past, the fact that she is chronically immunosuppress ed and a source of infection is not clear at this time, she would be better served in a tertiary [facility] er where she could have Nephrology and Infectious Disease evaluation. Dr. Aj was kind enough to discuss her case with me on the phone, but due to health issues he is not available to come [facility] her and we also unfortunately do not have Infectious Disease coverage at this time . His recommendation was to transfer her to [facility] where the patient has been admitted in t he past and she has seen Dr. Gtz and Dr. Martinez on prior visits. He felt that the complexity of her case would warrant transfer to [facility]. At this time, the patient had blood cultures sent, she received IV fluid bolus and we are going to co ntinue IV hydration. She received 1 dose of Zosyn empirically, but as stated above the source of her infection at this point is unclear. This case was discussed with the ED provider, Dr. Luna and she will make arrangements transfer the patient to [facility]. TIME SPENT: Approximately 50 minutes was spent with the patient and husb and's interview, medical records review, physical examination to complete this consultation, more landon n half of this time was spent [id number] with the patient and coordination of care. [id number]/[facility] #: [id number]
[2018-01-23 17:24] VITALS: BP 121/88
--- NOTE | 2018-01-24 09:20 | PN ---
Progress Note - Progress Note Date of Service: 01/23/18 Note: Pt. seen in ER and transferred to [facility] for higher level of care. Preliminary BC today is going gram positive cocci. Pt. was being treated with IV antibx. Will fax final culture.
== END 2018-01-23 17:32 | disposition short-term general hospital (02) ==
LOC: ED 09:39
DX: J18.9 Pneumonia, unspecified organism (principal); A41.9 Sepsis, unspecified organism; N18.4 Chronic kidney disease, stage 4 (severe); R10.9 Unspecified abdominal pain; D86.9 Sarcoidosis, unspecified; K72.90 Hepatic failure, unspecified without coma; R91.8 Other nonspecific abnormal finding of lung field; N05.9 Unspecified nephritic syndrome with unspecified morphologic changes; K74.60 Unspecified cirrhosis of liver; E78.5 Hyperlipidemia, unspecified; Z86.61 Personal history of infections of the central nervous system; Z88.5 Allergy status to narcotic agent; E66.9 Obesity, unspecified; Z79.899 Other long term (current) drug therapy
CPT/HCPCS: 36415; 71045; 80053; 81003; 81015; 82550; 82803; 83605; 83880; 84145; 84484; 85025; 85384; 85610; 85652; 85730; 86140; 87040; 87077; 87086; 87150; 87186; 87205; 93005; 96361; 96365; 96366; 96375; 99285; A9270-GY; J2270; J2543

== ENCOUNTER → 2018-03-15 05:57 | Day surgery (SDC) | payer BC ==
--- NOTE | 2018-03-07 21:53 | HP ---
CC: Dr. Aj; Dr. Ange Resendiz * PREOPERATIVE HISTORY AND PHYSICAL: DATE OF ADMISSION: 03/15/18 DATE OF PREOPERATIVE HISTORY AND PHYSICAL EXAMINATION: 03/07/18. This patient is scheduled for same-day surgery admission by Dr. Norman on . ATTENDING PHYSICIAN: Dr. uJan Norman * (dictated by Nini White NP). CHIEF COMPLAINT: End-stage renal disease. HISTORY OF PRESENT ILLNESS: The patient is a 47-year-old female referred to Dr. Norman from Dr. Aj for evaluation for placement of peritoneal dialysis catheter. The patient has chronic kidney disease stage 5 associated with sarcoidosis; she was admitted to [facility] in [place] for treatment of a kidney infection in January of this year and also was previously on a medication, which I do not know the name of, that also contributed to kidney disease. She has never had dialysis and has considered both hemodialysis and peritoneal dialysis and would like to proceed with laparoscopic placement of a peritoneal dialysis catheter. Dr. Norman examined the patient and discussed the findings with her and has recommended laparoscopic peritoneal dialysis catheter placement as a same-day surgery procedure and described the nature of the surgical procedure, the relevant risks, benefits, and alternatives and today, I reviewed the expected the postoperative care and recovery. The patient has had a chance to ask questions and stated that she understands the information and is satisfied with the answers given to her questions. She will sign surgical consent on the day of surgery. 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 PAST SURGICAL HISTORY: Laparoscopic cholecystectomy, 1992; tubal ligation, 1999 ; and hysterectomy, 2007. MEDICATIONS: 1. Cytra-2 of 20 cc b.i.d. 2. Furosemide 40 mg 2 tablets daily. 3. Labetalol 300 mg p.o. b.i.d. 4. Simvastatin 40 mg p.o. at bedtime. 5. Ursodiol 250 mg 3 capsules p.o. in the morning and 2 capsules p.o. in the evening. 6. Ranitidine 150 mg p.o. daily. 7. Vitamin B12 of 1000 mcg daily. 8. Vitamin D3 of 2000 international units daily. ALLERGIES: LATEX causes rash. CODEINE causes hallucinations. TRAMADOL caused confusion. BACTRIM was thought to contribute to kidney failure. She states that she can tolerate oxycodone with acetaminophen. FAMILY HISTORY: Father with heart disease. Mother with hypertension and stroke. No known anesthesia complications, bleeding tendencies, or clotting disorders. 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 REVIEW OF SYSTEMS: Constitutional: No fevers, chills, excessive fatigue, or weight loss. Endocrine: No diabetes or thyroid disease. Hematologic: No easy bruising or bleeding. No history of blood transfusions. Respiratory: Mild dyspnea on exertion. No chronic cough. Cardiovascular: No anginal chest pain or palpitations. Gastrointestinal: No nausea, vomiting, diarrhea, GI bleeding, or constipation. Genitourinary: No dysuria. Musculoskeletal: No complaints. Neurologic: No headache or blurred vision. No areas of focal weakness or numbness. General: No previous anesthesia complications. No history of deep vein thrombosis or pulmonary embolism. No previous blood transfusions. PHYSICAL EXAMINATION GENERAL SURVEY: The patient is a 47-year-old obese female, well developed, in no acute distress. VITAL SIGNS: Height 64 inches, weight 190 pounds, body mass index 32.6. Blood pressure 112/66, pulse 78 and regular, respiratory rate 18, and temperature 97.3 tympanic. HEENT: Benign. NECK: Supple. No cervical lymphadenopathy. No supraclavicular lymphadenopathy. No thyromegaly. LUNGS: Breath sounds bilaterally clear and equal. HEART: Regular rate and rhythm. No murmurs or rubs appreciated. ABDOMEN: Obese, active bowel sounds. Soft, nondistended, nontender throughout. Well-healed surgical scars. No obvious masses, organomegaly, or evidence of ventral hernia. PELVIC EXAM: Deferred. RECTAL EXAM: Deferred. EXTREMITIES: Warm without edema or skin ulceration. NEUROLOGIC: Alert and oriented x3. Steady gait. BACK: No CVA tenderness. SKIN: Warm, dry, and intact. IMPRESSION: End-stage renal disease. PLAN: Same-day surgery admission to Dr. Norman's service on 03/15/18 , for laparoscopic peritoneal dialysis catheter placement. FLORA WHITE, ASSISTANT GENERAL MANAGER [id number]/[facility] #: [id number] MARIO
[~2018-03-15 05:57] MED LIST: Acetaminophen TAB* 325 MG PO PRN; Buffered Lidocaine 0.9% SYRIN* 5 ML/SYR SYRINGE INTRADERM ONE; Buffered Lidocaine 0.9% SYRIN* 5 ML/SYR SYRINGE ONE; Bupivacaine 0.25% EPI 200,000* 30 ML SDV ONE; Cisatracurium* 2 MG/ML MDV 5 ML ONE; Dexamethasone IV* 4 MG/ML 1 ML (4 MG) ONE; EPHEDrine (Pressors)* 50 MG/ML VIAL ONE; Famotidine IV* 10 MG/ML 2 ML (20 mg) IV ONE; Famotidine IV* 10 MG/ML 2 ML (20 mg) ONE; Heparin DIALYSIS ONLY(*) 1,000 UNITS/ML VIAL ONE; Lidocaine 2% PF * 5 ML VIAL ONE; Midazolam* 1 MG/ML 5 ML VIAL (5 MG) ONE; NS 0.45% 1000 ML BAG* 1,000 ML IV SCH; Naloxone* 0.4 MG/ML 1 ML VIAL IV PRN; Ondansetron INJ* 2 MG/ML VIAL IV PRN; Ondansetron INJ* 2 MG/ML VIAL ONE; Propofol* 10 MG/ML 20 ML BTL IV PUSH ONE; ceFAZolin 2 GM in NS PREMIX(*) 2 GM/100 ML BAG IVPB ONE; fentaNYL* 50 MCG/ML 2 ML VIAL (100 MCG VIAL) ONE; oxyCODONE/Acetamin 5/325 MG* TAB PO PRN
--- NOTE | 2018-03-15 09:38 | OP ---
Operative Report - Blank - Operative Report Date of Operation: 03/15/18 Note: Brief Operative Note Preop Dx: End-stage renal disease Postop Dx: same; and intra-abdominal adhesions Procedure: Laparoscopy, lysis of adhesions, placement of peritoneal dialysis catheter, omentopexy Anesthesia: GET Surgeon: Ester Personnel Interviewer: SANAZ Boothe Fluids: 750 ml NS EBL: 50 ml Specimen: none Drains: peritoneal dialysis catheter Findings: dictated
[2018-03-15] MEDS: fentaNYL* 50 MCG/ML 2 ML VIAL (100 MCG VIAL) IV PRN ×2 (10:03→10:30)
[2018-03-15 18:00] VITALS: BP 111/67
--- NOTE | 2018-03-17 03:04 | OP ---
CC: Dr. Aj; Patient's primary care doctor, Ange Resendiz MD * DATE OF OPERATION: 03/15/18 - [facility] DATE OF : 66. SURGEON: Dr. Norman. JOURNEYMAN SHEET METAL WORKER: SANAZ Allison. ANESTHESIOLOGIST: Dr. Mccall. ANESTHESIA: General anesthesia. PRE-OP DIAGNOSIS: End-stage renal disease. POST-OP DIAGNOSIS: End-stage renal disease. OPERATIVE PROCEDURE: Diagnostic laparoscopy, lysis of adhesions, placement of peritoneal dialysis catheter and omentopexy. IV FLUIDS: 750 cc. BLOOD LOSS: Less than 50 cc. SPECIMEN: None. DRAINS: 62 cm Curl catheter exiting to the left lower quadrant. DESCRIPTION OF PROCEDURE: Mr. Jacques was identified in the preoperative area. She was marked at belt line and examined and a decision for where the catheter would exit was made. She was then brought to the operating room, placed on the operating table in supine position. Preoperative antibiotics were given. Sequential devices were placed on bilateral lower extremities. General anesthesia was induced. The patient's abdomen was prepped and draped in a standard surgical fashion. A time-out was performed. An incision was made at Zamora's point, the left upper quadrant. This was deepened down to the fascia which was elevated and a Veress needle inserted into the abdominal cavity which was then allowed to insufflate to a pressure of 15 mmHg. The patient tolerated the insufflation well. The Veress needle was removed and a 8 mm trocar was inserted into this. A laparoscope was inserted and there was no evidence of injury from the trocar insertion or from the Veress needle. Review of the abdomen showed significant omental attachments to the anterior abdominal wall throughout the mid abdomen and the lower abdomen. Additional trocars were then placed in the following positions. Two 5 mm trocars in the left lower quadrant. With cautery and blunt dissection, we removed the omentum and small bowel from the anterior abdominal wall to allow us to enter in the pelvis. Once the lysis was performed, we were able to review the area between bladder and colon and it seemed it was good opportunity to place a peritoneal dialysis catheter at the site. Next, a 62 cm Curl catheter was inserted, placed in the appropriate position in the pelvis and then we turned our attention to the portion of the omentum that was dissected off the anterior abdominal. There was some bleeding at the site. These little bleeding areas were cauterized and a small portion of the omentum was ligated with an EndoTAG. Once we had the hemostasis then we proceeded to tunnel the catheter through the anterior abdominal through the left rectus muscle. This was performed by placing a 5 mm trocar in an oblique fashion through the anterior abdominal wall and bringing the catheter up through the side. We then tunneled in the appropriate fashion to the exit site that we had earlier planned. This was connected to the dialysate which flowed freely and also easily removed with gravity drainage. An omentopexy was then decided to be performed despite a lot of the omentum being attached to the upper part of the abdominal wall already. The portion that was dissected free was then brought up to the right upper quadrant and tagged with an Endo Close device using 0 Polysorb suture. We reviewed the abdomen again. There was no bleeding. We then allowed the abdomen to collapse. Trocar was removed under direct vision and all incisions were closed with 4-0 Monocryl subcuticular sutures followed by sterile dressing. The patient tolerated the procedure well and was transferred to PACU in stable condition. [id number]/[facility] #: [id number] MARIO
== END | disposition home or self-care (01) ==
LOC: OR 05:57
PROVIDERS: ATTEND Surgery
DX: N18.6 End stage renal disease (principal); K66.0 Peritoneal adhesions (postprocedural) (postinfection); D86.89 Sarcoidosis of other sites; K74.3 Primary biliary cirrhosis; E78.5 Hyperlipidemia, unspecified
CPT/HCPCS: J0690; J1100; J1644; J2250; J2405; J2704; J3010

== ENCOUNTER 2018-06-02 14:54 | Observation (INO) | payer BC ==
[2018-06-02] MEDS ORDERED: Vancomycin(*) 1,000 MG in NS 0.9% 250 ML* 250 ML IVPB ONE (15:30)
[2018-06-02] MEDS ORDERED: oxyCODONE/Acetamin 5/325 MG* TAB PO PRN (16:27)
[2018-06-02 16:53] LABS: ABS Basophils 0.1 10^3/ul (0-0.2); ABS Eosinophils 0.3 10^3/ul (0-0.6); ABS Lymphocytes 1.7 10^3/ul (1.0-4.8); ABS Monocytes 0.9 10^3/ul (0-0.8); ABS Nucleated RBC 0 10^3/ul; Hematocrit 31 % (35-47); Hemoglobin 10.6 g/dl (12.0-16.0); Lymphocyte % 17.2 %; Mean Corpuscular HGB Conc 34 g/dl (31-36); Mean Corpuscular Hemoglobin 29 pg (27-31); Mean Corpuscular Volume 86 fL (80-97); Mean Platelet Volume 7.5 fL (7.4-10.4); Nucleated Red Blood Cells % 0; Platelet Count 321 10^3/ul (150-450); Red Blood Count 3.61 10^6/ul (4.00-5.40); Red Cell Distribution Width 15 % (10.5-15)
[2018-06-02] MEDS: URSODIOL 250 MG PO SCH (17:00)
[2018-06-02 17:12] LABS: Albumin/Globulin Ratio 1.1 (1-3); BUN/Creatinine Ratio 12.1 (8-20); Calcium 9.7 mg/dL (8.6-10.3); EGFR African American 8.8 (>60); EGFR Non-African American 7.3 (>60); Globulin 3.6 g/dL (2-4); Potassium 3.7 mmol/L (3.5-5.0); Total Bilirubin 0.2 mg/dL (0.2-1.0); Total Protein 7.6 g/dL (6.4-8.9)
[2018-06-02] MEDS ORDERED: Famotidine TAB* 20 MG PO SCH (18:00)
[2018-06-02] MEDS: Atorvastatin* 20 MG TAB PO SCH (20:28)
[2018-06-02] MEDS: Labetalol TAB* 300 MG PO SCH (20:29)
[2018-06-02] MEDS: Sodium Citrate/Citric Acid* 15 ML UDC PO SCH (20:29)
[2018-06-03] MEDS ORDERED: Bupivacaine 0.25% EPI 200,000* 30 ML SDV ONE (07:15)
[2018-06-03] MEDS ORDERED: Propofol* 10 MG/ML 20 ML BTL ONE (07:47)
[2018-06-03] MEDS ORDERED: Midazolam* 1 MG/ML 2 ML VIAL (2 MG) ONE (07:47)
[2018-06-03] MEDS ORDERED: fentaNYL* 50 MCG/ML 2 ML VIAL (100 MCG VIAL) ONE ×3 (07:47→09:54)
[2018-06-03] MEDS ORDERED: Lidocaine 2% PF * 5 ML VIAL ONE (07:55)
[2018-06-03] MEDS ORDERED: Dexamethasone IV* 4 MG/ML 1 ML (4 MG) ONE (07:56)
[2018-06-03] MEDS ORDERED: Famotidine IV* 10 MG/ML 2 ML (20 mg) ONE (07:56)
[2018-06-03] MEDS ORDERED: Ondansetron INJ* 2 MG/ML VIAL ONE (07:56)
[2018-06-03] MEDS ORDERED: EPHEDrine (Pressors)* 50 MG/ML VIAL ONE (08:37)
[2018-06-03] MEDS ORDERED: Naloxone* 0.4 MG/ML 1 ML VIAL IV PRN (08:52)
[2018-06-03] MEDS ORDERED: DiMENhydriNATE IV* 50 MG/ML VIAL IV PUSH PRN (08:52)
[2018-06-03] MEDS: fentaNYL* 50 MCG/ML 2 ML VIAL (100 MCG VIAL) IV PRN ×3 (09:26→09:54)
--- NOTE | 2018-06-03 09:34 | BRIEFOPN ---
Brief Operative Note - Surgery Procedures: Procedures OPERATIVE REPORT PRE-OP: Infected peritoneal dialysis catheter POST-OP:Same PROCEDURE:Open removal of infected peritoneal dialysis catheter SURGEON: MD Saba ANESTHESIA:Local with General, Dr. Peres ASST:none IVF:min EBL:min SPECIMEN:1) Pus from subq space, 2) Peritoneal fluid, 3)Catheter tip DRAIN: none WOUND CLASS:4 COMPLICATIONS: none TO PACU
[2018-06-03] MEDS: URSODIOL 250 MG PO SCH ×2 (10:26→17:49)
[2018-06-03] MEDS: Labetalol TAB* 300 MG PO SCH ×2 (10:26→21:50)
[2018-06-03] MEDS ORDERED: Morphine VIAL* 4 MG/ML VIAL (1 ml vial) IV PRN (10:36)
[2018-06-03] MEDS: Sodium Citrate/Citric Acid* 15 ML UDC PO SCH ×2 (11:01→21:49)
--- NOTE | 2018-06-03 12:27 | CONSULT ---
Subjective Date of Service: 06/03/18 Interval History: Ms. Jacques is a 47 year old female with a H Primary Billiary Cirrhosis, ESRD secondary to sarcoidosis, HLD and GERD admitted for removal of an infected peritoneal dialysis catheter. The catheter was originally placed in March 2018 , but she had not yet started dialysis. Yesterday she noticed that the area around the catheter had become raised and sore. She went to work like usual, but found that the area was becoming increasingly fluid filled and erythmatous, and that there was pus visible in the catheter itself. She did not experience any systemic symptoms such as fever or chills and she has been afebrile without leukocytosis in the hospital. She received vancomycin last night, then underwent the procedure to remove the catheter today with Dr. Walter. The patient was examined at bedside post operatively. She is resting comfortably, NAD, and reports that her surgical pain is well controlled on the current pain control regimen. She denies chest pain, shortness of breath, nausea/vomiting, dizziness, headache, numbness or tingling in her extremities. 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 She smoked 1-1.5 packs per day for 20 years and quit in 2007. She does not drink alcohol. Review of Systems - Measurements Intake and Output: Intake and Output Last 24 Hours 06/01/18 06/02/18 06/03/18 06/04/18 06:59 06:59 06:59 06:59 Intake Total 1000 500 Output Total 2800 600 Balance -1800 -100 Weight 93.44 kg Intake: IV Fluids 500 0.45% NS 500 Oral 1000 Output: Urine 2800 600 - Review of Systems General Comments: I performed a 14 point review of systems. All the pertinent positives and negatives are mentioned above. The remaining review of systems are negative. Objective Active Medications: Atorvastatin Calcium (Lipitor*) 20 mg PO BEDTIME [facility] Last Admin: 06/02/18 20:28 Dose: 20 mg Citric Acid/Sodium Citrate (Bicitra*) 20 ml PO BID [facility] Last Admin: 06/03/18 11:01 Dose: 15 ml Famotidine (Pepcid Tab*) 20 mg PO QPM [facility]; Protocol Stop: 06/03/18 17:59 Last Admin: 06/02/18 17:37 Dose: 20 mg Labetalol HCl (Trandate Tab*) 300 mg PO BID [facility] Last Admin: 06/03/18 10:26 Dose: Not Given Morphine Sulfate (Morphine Vial*) 2 mg IV Q3H PRN PRN Reason: SEVERE BREAKTHRU PAIN Oxycodone/Acetaminophen (Percocet 5/325 Tab*) 1 tab PO Q6H PRN PRN Reason: PAIN Oxycodone/Acetaminophen (Percocet 5/325 Tab*) 2 tab PO Q4H PRN PRN Reason: SEVERE PAIN Ursodiol (Froylan 250(Nf)) 500 mg PO QPM [facility] Last Admin: 06/02/18 17:00 Dose: Not Given Ursodiol (Froylan 250(Nf)) 750 mg PO QAM [facility] Last Admin: 06/03/18 10:26 Dose: Not Given Vital Signs - 8 hr 06/03/18 06/03/18 06/03/18 07:13 09:17 09:18 Temperature 98.1 F Pulse Rate 70 76 68 Respiratory 16 Rate Blood Pressure 125/60 152/80 (mmHg) O2 Sat by Pulse 99 99 98 Oximetry 06/03/18 06/03/18 06/03/18 09:20 09:25 09:26 Temperature 96.8 F Pulse Rate 67 64 Respiratory 14 18 13 Rate Blood Pressure 137/79 140/72 (mmHg) O2 Sat by Pulse 100 99 Oximetry 06/03/18 06/03/18 06/03/18 09:30 09:35 09:40 Temperature Pulse Rate 63 64 63 Respiratory 15 17 14 Rate Blood Pressure 133/74 140/70 144/73 (mmHg) O2 Sat by Pulse 98 99 99 Oximetry 06/03/18 06/03/18 06/03/18 09:41 09:45 09:54 Temperature Pulse Rate 62 Respiratory 16 15 16 Rate Blood Pressure 131/61 (mmHg) O2 Sat by Pulse 99 Oximetry 06/03/18 06/03/18 06/03/18 10:00 10:01 10:18 Temperature 96.5 F Pulse Rate 60 64 57 Respiratory 12 14 16 Rate Blood Pressure 132/75 119/68 (mmHg) O2 Sat by Pulse 96 98 100 Oximetry 06/03/18 06/03/18 06/03/18 10:25 10:35 10:39 Temperature 96.5 F Pulse Rate 57 Respiratory 18 18 18 Rate Blood Pressure 119/68 (mmHg) O2 Sat by Pulse 100 Oximetry 06/03/18 11:16 Temperature 97.6 F Pulse Rate 56 Respiratory 16 Rate Blood Pressure 110/64 (mmHg) O2 Sat by Pulse 98 Oximetry Oxygen Devices in Use Now: None Eyes: No Scleral Icterus, PERRLA Ears/Nose/Mouth/Throat: NL Teeth, Lips, Gums, Mucous Membranes Moist Neck: NL Appearance and Movements; NL JVP, Trachea Midline Respiratory: Symmetrical Chest Expansion and Respiratory Effort, Clear to Auscultation Cardiovascular: NL Sounds; No Murmurs; No JVD, RRR, No Edema Abdominal: - - Hypoactive bowel sounds. Surgical dressing on abdomen CDI. Diffuse tenderness to palpation. Abdomen soft and nondistended. Extremities: No Edema Skin: No Rash or Ulcers Neurological: Alert and Oriented x 3, NL Sensation, NL Muscle Strength and Tone Result Diagrams: 06/02/18 16:44 06/02/18 16:44 Assessment/Plan - Billing Plan By Medical Problem: 1. s/p removal of infected peritoneal dialysis catheter - plan per primary team , surgery. Received vanco x1. Wound cultures pending. Patient reports pain is well controlled on current regimen. 2. End Stage Renal Disease secondary to Sarcoidosis - Follows with Dr. Aj. Pt has not yet begun dialysis. GFR 7.3, which appears to be her baseline since January of this year. Continue bicitra. Labetolol held this morning in the setting of soft BPs post-op and can be resumed this evening. Lasix held this morning as well in anticipation of surgery. Resume tomorrow. 3. Primary billiary cirrhosis - continue ursodial 750mg QAM and 500mg QPM 4. GERD - continue famotidine 5. HLD - continue statin VTE PPX: Pt is ambulatory Diet: Renal Diet Code Status: Full Code Admission Status and Rationale:
[2018-06-03] MEDS: oxyCODONE/Acetamin 5/325 MG* TAB PO PRN ×3 (13:18→21:54)
--- NOTE | 2018-06-03 13:52 | OP ---
CC: Dr. Ramy Aj * DATE OF OPERATION: 06/03/18 - ROOM #331 DATE OF : 66. SURGEON: Clay Walter MD. WORKFORCE ANALYST: None. ANESTHESIA: General with local. ANESTHESIOLOGIST: Dr. Peres. PRE-OP DIAGNOSIS: Infected existing peritoneal dialysis catheter. POST-OP DIAGNOSIS: Infected existing peritoneal dialysis catheter. OPERATIVE PROCEDURE: Removal of peritoneal dialysis catheter. WOUND CLASSIFICATION: 4. SPECIMENS: 1. Cultures from abdominal wall abscess. 2. Catheter tip. 3. Cultures from abdominal fluid. IV FLUIDS: Minimal. ESTIMATED BLOOD LOSS: Minimal. FINDINGS: There was a subcutaneous abscess surrounding the catheter in its tunneled portion, which was drained and cultured. The both cuffs were completely excised and upon removing the catheter from the abdominal cavity, there was purulent exudate from the entrance site and there was also pus within the catheter lumen itself. BRIEF HISTORY: Ms. Kelly Burton is a 47-year-old woman with chronic renal insufficiency with a peritoneal dialysis catheter placed almost 2 months ago laparoscopically. This catheter has not been needed yet. She has not actually started dialysis. She presented to the office yesterday with abdominal discomfort, but no generalized peritonitis; however, she did have significant redness around the catheter site on the abdominal wall and there appeared to be purulent fluid within the catheter, but this could not flush or aspirate the catheter. After discussion with Dr. Aj, she has been admitted to the hospital and started on IV antibiotics and with a presumed infected nonfunctioning catheter. This was to be removed today. DESCRIPTION OF PROCEDURE: Written informed consent was obtained, the abdomen was marked with indelible ink. The patient received preoperative antibiotics. She was taken to the operating room, placed in the supine position. Sequential compression devices and a warming blanket were applied. The abdomen was prepped and draped in the usual sterile fashion. Time-out verification was completed. 1% lidocaine with epinephrine was infiltrated extensively along the catheter and its tract. A small transverse incision was made at the exit site and carried medially on the left side of the abdominal wall. Here, I entered a purulent abscess and this was drained and cultured. A separate counter incision in a transverse orientation more medially to where it felt that the first cuff was and carried down and excised the more distal cuff from the surrounding tissue. I followed this down directly in through the subcutaneous tissue into the rectus muscle and the cuff was in the subcutaneous space and was freed without difficulty and the entire catheter was removed. I sent the tip for culture. Upon compression of the abdominal wall, there was some purulent fluid, which exuded up from the small opening and this was cultured as well. I did not attempt to close the small opening at the muscular level to allow for drainage. Hemostasis was assured. Both wounds were packed with a moist 2-inch Tomeka dressing and dry sterile dressings were applied. The patient tolerated the procedure well, was taken to the recovery room in stable condition. [id number]/[facility] #: [id number] [facility]EROriana
[2018-06-03] MEDS: Atorvastatin* 20 MG TAB PO SCH (21:50)
[2018-06-04] MEDS: oxyCODONE/Acetamin 5/325 MG* TAB PO PRN (06:36)
[2018-06-04] MEDS ORDERED: Furosemide TAB* 40 MG PO SCH (09:00)
[2018-06-04] MEDS: Labetalol TAB* 300 MG PO SCH (09:30)
[2018-06-04] MEDS: Sodium Citrate/Citric Acid* 15 ML UDC PO SCH (09:30)
[2018-06-04] MEDS: URSODIOL 250 MG PO SCH (09:30)
--- NOTE | 2018-06-04 10:31 | PN ---
Progress Note - Progress Note Date of Service: 06/04/18 SOAP: Subjective: Feels much better Tolerating po and passing flatus Minimal pain Objective: Temp Pulse Resp BP Pulse Ox 97.3 F 58 14 125/62 96 06/04/18 07:29 06/04/18 07:29 06/04/18 09:44 06/04/18 07:29 06/04/18 07:29 Intake & Output 06/02/18 06/03/18 06/04/18 06/05/18 06:59 06:59 06:59 06:59 Intake Total 1000 2960 320 Output Total 2800 2750 Balance -1800 210 320 Weight 206 lb Intake: IV Fluids 500 0.45% NS 500 Oral 1000 2460 320 Output: Urine 2800 2750 PEX: Lungs are clear Abd is soft and non-distended. Bowel sounds are present. Left abdominal wall wounds are clean and pink, no odor or purulence. Packing changed CX Gram positive cocci, MRSA negative Assessment: Infected peritoneal dialysis catheter-removed yesterday No signs of peritonitis Plan: D/C home today Keflex 500 mg po q 12 for 10 days Office follow up tomorrow for wound care Nephrology follow up.
[2018-06-04 11:48] VITALS: BP 130/65
--- NOTE | 2018-06-12 20:23 | DS ---
DISCHARGE SUMMARY: DATE OF ADMISSION: 06/02/18 DATE OF DISCHARGE: 06/04/18 PRINCIPAL DIAGNOSIS: Infected peritoneal dialysis catheter. PROCEDURE PERFORMED: Removal of infected peritoneal dialysis catheter. SECONDARY DIAGNOSES: Include: 1. Hypertension. 2. Chronic renal insufficiency. CONDITION ON DISCHARGE: Good. DISPOSITION: To home. INSTRUCTIONS ON DISCHARGE: The patient was given a prescription for Keflex 500 mg q.12 for 10 days. She was also given a prescription for oxycodone/ acetaminophen 5/325 mg for p.r.n. use. Followup appointment was made to be seen in the [facility] office for wound care and packing changes. HISTORY OF PRESENT ILLNESS: Ms. Kelly Jacuqes is a 47-year-old woman with a chronic renal insufficiency not requiring dialysis, who had a peritoneal dialysis catheter placed laparoscopically about 2 months ago. She had presented to the office with this redness and drainage around the catheter exit site with purulent material within the catheter lumen itself. HOSPITAL COURSE: After being seen in the office, in discussion with Dr. Aj in light of the clinical findings, felt that the catheter required removal. She was admitted, started on IV vancomycin. On hospital day #1, she was taken to the operating room where she underwent catheter removal with culture. The wound was packed. Cultures had returned at the time of this dictation Staph aureus without evidence of an MRSA sensitive to penicillins. On hospital day #2, she was tolerating dressing care, pain was adequately controlled and she was afebrile and she was discharged home. [id number]/[facility] #: [id number] MTDD
== END 2018-06-04 11:56 | disposition home or self-care (01) ==
LOC: SSU 14:56
PROVIDERS: ADMIT Surgery; ATTEND Surgery
DX: T85.71XA Infection and inflammatory reaction due to peritoneal dialysis catheter, initial encounter (principal); Y84.8 Other medical procedures as the cause of abnormal reaction of the patient, or of later complication, without mention of misadventure at the time of the procedure; Z79.899 Other long term (current) drug therapy; I12.0 Hypertensive chronic kidney disease with stage 5 chronic kidney disease or end stage renal disease; N18.6 End stage renal disease
CPT/HCPCS: 36415; 80053; 85025; 87070; 87071; 87073; 87076; 87077; 87186; 87205; 87640; 87641; 96374; 96375; 96376; A9270-GY; G0378; J1100; J2250; J2270; J2405; J2704; J3010; J3370

== ENCOUNTER 2024-04-16 18:51 | Inpatient (IN) ==
[2024-04-16] MEDS ORDERED: LORazepam 2 mg VIAL 1 ml ONE ×2 (19:12→19:34)
[2024-04-16] MEDS: LORazepam 2 mg VIAL 1 ml IV PUSH ONE ×2 (19:14→21:40)
[2024-04-16] MEDS ORDERED: levETIRAcetam 1000MG IVPREMIX 1,000 MG/100 ML BAG ONE (19:17)
[2024-04-16] MEDS: levETIRAcetam 1000MG IVPREMIX 1,000 MG/100 ML BAG IVPB ONE (19:19)
[2024-04-16 19:39] LABS: Hematocrit 30.5 % (35-45); Hemoglobin 9.7 g/dL (11.5-14.3); Mean Corpuscular Hgb Conc 31.8 g/dL (31-36); Mean Platelet Volume 7.1 fL (7.5-11.2); Platelet Count 419 10^3/uL (150-450); Red Blood Count 3.47 10^6/uL (3.63-4.92); Red Cell Distribution Width 16.6 % (12-17); White Blood Count 16.3 10^3/uL (3.8-11.8)
[2024-04-16 20:04] LABS: High Sens Troponin Baseline 72 pg/mL (<15)
[2024-04-16 20:24] LABS: ABS Basophils 0.3 10^3/uL (0.0-0.1); ABS Eosinophils 0.5 10^3/uL (0.0-0.5); ABS Lymphocytes 1.7 10^3/uL (1.0-4.8); ABS Monocytes 1.5 10^3/uL (0.0-0.9); ABS Neutrophils 12.3 10^3/uL (1.5-7.6); ABS Nucleated RBC 0.04 10^3/ul; Anisocytosis 1+; Eosinophil % 2.9 %; Hypochromasia 1+; Lymphocyte % 10.4 %; Nucleated Red Blood Cells % 0.2 %/100WBC (0.0-0.8); Polychromasia 1+
[2024-04-16 20:41] LABS: ALT 11 U/L (7-52); AST 15 U/L (13-39); Acetaminophen < 15 mcg/mL; Albumin 3.4 g/dL (3.2-5.2); Albumin/Globulin Ratio 1.3 (1-3); Alcohol, S 15 mg/dL (<13); Alkaline Phosphatase 172 U/L (35-149); Anion Gap 26 mmol/L (2-16); Blood Urea Nitrogen 72 mg/dL (6-24); CO2 Carbon Dioxide 13 mmol/L (22-32); Calcium 8.8 mg/dL (8.6-10.3); Chloride 94 mmol/L (101-111); Creatinine, Serum 17.46 mg/dL (0.51-0.95); Globulin 2.6 g/dL (2-4); Glucose 101 mg/dL (70-100); Salicylate < 2.50 mg/dL (<30); Sodium 133 mmol/L (135-145); Total Bilirubin 0.3 mg/dL (0.2-1.0); eGFR CKD-EPI 2.2 (>60)
[2024-04-16 21:09] LABS: High Sensitivity Troponin 1 Hr 50 pg/mL (<15)
[2024-04-16] MEDS ORDERED: Lorazepam PYXIS KEY PRN (21:13)
[2024-04-16] MEDS: Iodixanol 320 (CONTRAST) 100 ML SDV IV ONE (21:47)
[2024-04-17 01:29] LABS: Calcium 8.2 mg/dL (8.6-10.3); Creatinine, Serum 17.8 mg/dL (0.51-0.95); Potassium 4.8 mmol/L (3.5-5.0); eGFR CKD-EPI 2.1 (>60)
[2024-04-17] MEDS ORDERED: Lorazepam PYXIS KEY PRN (03:42)
[2024-04-17] MEDS ORDERED: LORazepam 2 mg VIAL 1 ml IV PUSH PRN (03:42)
[2024-04-17] MEDS: HYDROmorphone 0.5 MG/0.5 ML SYRINGE IV SLOW PU ONE (03:48)
[2024-04-17] MEDS: Heparin 5000 UNITS/ML 1 mL VIAL SUBCUT SCH (06:15)
[2024-04-17 09:13] LABS: ABS Basophils 0.1 10^3/uL (0.0-0.1); ABS Eosinophils 0.3 10^3/uL (0.0-0.5); ABS Lymphocytes 0.9 10^3/uL (1.0-4.8); ABS Neutrophils 8.9 10^3/uL (1.5-7.6); ABS Nucleated RBC 0.01 10^3/ul; Eosinophil % 2.4 %; Hematocrit 28.6 % (35-45); Hemoglobin 9.3 g/dL (11.5-14.3); Lymphocyte % 7.7 %; Mean Corpuscular Hemoglobin 27.7 pg (27-33); Mean Corpuscular Hgb Conc 32.4 g/dL (31-36); Mean Corpuscular Volume 85.3 fL (80-97); Mean Platelet Volume 7.1 fL (7.5-11.2); Nucleated Red Blood Cells % 0.1 %/100WBC (0.0-0.8); Platelet Count 350 10^3/uL (150-450); Red Blood Count 3.35 10^6/uL (3.63-4.92); Red Cell Distribution Width 16.7 % (12-17); White Blood Count 11.1 10^3/uL (3.8-11.8)
[2024-04-17] MEDS: Cholecalciferol (VIT D3) 1,000 unit TAB PO SCH (09:22)
[2024-04-17] MEDS: NF: Ursodiol 250 mg TAB (NF) PO SCH (09:26)
[2024-04-17 09:46] LABS: C Reactive Protein 12.08 mg/L (<8.01); Calcium 8.2 mg/dL (8.6-10.3); Creatinine, Serum 18.14 mg/dL (0.51-0.95); Phosphorus 11.9 mg/dL (2.5-5.0); Potassium 4.8 mmol/L (3.5-5.0); eGFR CKD-EPI 2.1 (>60)
[2024-04-17] MEDS: Labetalol 300 mg TAB PO SCH (10:25)
[2024-04-17] MEDS: Heparin 1,000 UNIT/ML 10 ml (10,000 UNITS) CATHLAB/DIALYSIS DIALYSIS SCH (14:53)
[2024-04-17] MEDS: NS 0.9% 1000 ml BAG 1,000 ML IV SCH (15:41)
[2024-04-17] MEDS: Magic MouthWash2-BEN/MAAL/LIDO/NYST 240 ML BTL (alt formulation) SWISH SPIT SCH (18:05)
[2024-04-17] MEDS: URSODIOL 250 MG PO SCH (21:46)
[2024-04-18] MEDS: URSODIOL 250 MG PO SCH (08:42)
[2024-04-18] MEDS: Mupirocin 2% OINT TUBE TOPICAL SCH (08:44)
[2024-04-18] MEDS ORDERED: Lorazepam PYXIS KEY PRN (14:07)
[2024-04-18] MEDS: LORazepam 2 mg VIAL 1 ml IV PUSH PRN (20:05)
[2024-04-19 07:29] LABS: Hematocrit 26.1 % (35-45); Hemoglobin 8.8 g/dL (11.5-14.3); Mean Corpuscular Hgb Conc 33.6 g/dL (31-36); Mean Corpuscular Volume 86.3 fL (80-97); Mean Platelet Volume 7.1 fL (7.5-11.2); Platelet Count 301 10^3/uL (150-450); Red Blood Count 3.02 10^6/uL (3.63-4.92); Red Cell Distribution Width 16.7 % (12-17); White Blood Count 9.8 10^3/uL (3.8-11.8)
[2024-04-19 07:52] LABS: Calcium 8.7 mg/dL (8.6-10.3); Creatinine, Serum 17.46 mg/dL (0.51-0.95); Magnesium 1.9 mg/dL (1.9-2.7); Potassium 4.1 mmol/L (3.5-5.0); eGFR CKD-EPI 2.2 (>60)
[2024-04-19 10:47] LABS: ABS Basophils 0.1 10^3/uL (0.0-0.1); ABS Eosinophils 0.4 10^3/uL (0.0-0.5); ABS Lymphocytes 0.9 10^3/uL (1.0-4.8); ABS Neutrophils 7.3 10^3/uL (1.5-7.6); ABS Nucleated RBC 0.01 10^3/ul; Eosinophil % 3.9 %; Lymphocyte % 9.4 %; Nucleated Red Blood Cells % 0.1 %/100WBC (0.0-0.8); RBC Morphology Normal (Normal)
[2024-04-19 13:55] VITALS: BP 143/65
== END 2024-04-19 15:50 | disposition home or self-care (01) | DRG 100 ==
LOC: EDHOLD 18:51 → ED 18:51 → SUATTDRO 04-17 00:08 → MED 04-17 02:43 → SUATTDRO 04-17 09:55
PROVIDERS: ADMIT Hospitalist; ATTEND Internal Medicine